=== PATIENT | male | born 1985 | race Caucasian/White ===

== ENCOUNTER 2017-03-15 07:56 | Emergency (ER) | payer MEDICAID ==
[~2017-03-15] VITALS: Ht 182.9 cm; Wt 90.0 kg
[2017-03-15 07:59] VITALS: BP 139/86
[2017-03-15] MEDS ORDERED: ACETAMINOPHEN 325 MG TABLET ONE (08:19)
[2017-03-15] MEDS ORDERED: DIAZEPAM 5 MG TABLET ONE (08:19)
[2017-03-15] MEDS ORDERED: PLEASE ENTER ALLERGIES MC SCH ×2 (08:30)
[2017-03-15] MEDS ORDERED: DIAZEPAM 5 MG TABLET PO ONE (08:30)
[2017-03-15] MEDS ORDERED: ACETAMINOPHEN 325 MG TABLET PO ONE (08:30)
== END 2017-03-15 12:11 | disposition home or self-care (01) ==
LOC: ED 09:19
DX: S13.4XXA Sprain of ligaments of cervical spine, initial encounter (principal); S00.531A Contusion of lip, initial encounter; Y04.0XXA Assault by unarmed brawl or fight, initial encounter
CPT/HCPCS: 29125; 70450; 72072; 72125